=== PATIENT | female | born 1985 | race Two or more races ===

== ENCOUNTER 2017-04-22 18:04 | Outpatient (CLI) | payer OTHER ==
[~2017-04-22 18:04] MED LIST: LEVAQUIN750 MG PO
== END 2017-04-22 18:45 | disposition home or self-care (01) ==
LOC: NST 18:04
DX: Z34.82 Encounter for supervision of other normal pregnancy, second trimester (principal); Z3A.28 28 weeks gestation of pregnancy

== ENCOUNTER 2017-04-24 02:35 | Inpatient (IN) | payer OTHER ==
[~2017-04-24] VITALS: Ht 157.5 cm; Wt 62.6 kg
[2017-04-24] MEDS ORDERED: PRENATAL TABLE1 EAC4 PO (14:35)
== END 2017-04-26 12:35 | disposition home or self-care (01) | DRG 781 ==
LOC: OBS/DEL 02:35 → LDR 07:45 → OB/GYN 16:47
PROC: 4A1HXCZ Monitoring of Products of Conception, Cardiac Rate, External Approach (ICD-10-PCS; principal; 2017-04-24)
PROC: BW40ZZZ Ultrasonography of Abdomen (ICD-10-PCS; 2017-04-24)
PROC: BY4FZZZ Ultrasonography of Third Trimester, Single Fetus (ICD-10-PCS; 2017-04-24)
DX: O26.893 Other specified pregnancy related conditions, third trimester (principal); M54.9 Dorsalgia, unspecified; B95.1 Streptococcus, group B, as the cause of diseases classified elsewhere; Z3A.28 28 weeks gestation of pregnancy

== ENCOUNTER 2017-07-08 09:28 | Inpatient (IN) | payer OTHER ==
[~2017-07-08] VITALS: Ht 157.5 cm; Wt 3.2 kg
[~2017-07-08 09:28] MED LIST changes: +PRENATAL TABLE1 EAC4 PO
== END 2017-07-11 12:44 | DRG 766 ==
LOC: O/R 09:28 → OB/GYN 10:19
PROVIDERS: Obstetrics & Gynecology Maternal & Fetal Medicine
PROC: 0UT50ZZ Resection of Right Fallopian Tube, Open Approach (ICD-10-PCS; 2017-07-08)
PROC: 4A1HXCZ Monitoring of Products of Conception, Cardiac Rate, External Approach (ICD-10-PCS; 2017-07-08)
PROC: 10D00Z1 Extraction of Products of Conception, Low, Open Approach (ICD-10-PCS; principal; 2017-07-08 12:30)
DX: O34.211 Maternal care for low transverse scar from previous cesarean delivery (principal); Z3A.39 39 weeks gestation of pregnancy; Z37.0 Single live birth; Z30.2 Encounter for sterilization; Z64.1 Problems related to multiparity

== ENCOUNTER 2019-06-22 15:14 | Emergency (ER) | payer OTHER ==
[~2019-06-22] VITALS: Ht 157.5 cm; Wt 61.2 kg
[2019-06-22] MEDS ORDERED: BACTRIM DS TAB1 EACH PO (16:50)
== END 2019-06-22 17:18 | disposition home or self-care (01) ==
LOC: ER 15:14
DX: T16.1XXA Foreign body in right ear, initial encounter (principal); H92.01 Otalgia, right ear; W45.8XXA Other foreign body or object entering through skin, initial encounter; Y93.89 Activity, other specified; Y92.89 Other specified places as the place of occurrence of the external cause; Y99.8 Other external cause status

== ENCOUNTER 2023-01-05 15:12 | Emergency (ER) | payer OTHER ==
[~2023-01-05] VITALS: Ht 157.5 cm; Wt 65.8 kg
[~2023-01-05 15:12] MED LIST changes: +BACTRIM DS TAB1 EACH PO
[2023-01-05] MEDS ORDERED: PEPCID AC20 MG PO (20:55)
[2023-01-05] MEDS ORDERED: ZOFRAN8 MG PO (20:55)
== END 2023-01-05 21:01 | disposition home or self-care (01) ==
LOC: ER 15:12
PROVIDERS: General Practice
DX: R10.32 Left lower quadrant pain (principal); Z88.0 Allergy status to penicillin

== ENCOUNTER → 2024-04-30 | Emergency (ER) | payer OTHER ==
[~2024-04-30] VITALS: Ht 157.5 cm; Wt 74.8 kg
[~2024-04-30] MED LIST changes: +ALL DAY ALLERGY10 M3 PO; +MUCINEX DM ER1 EAC1 PO; +PEPCID AC20 MG PO; +PROAIR RESPICL90 MCG IH; +SEPTRA; +SYMBICORT 16010.2 GM IH; +ZITHROMAX500 MG PO; +ZOFRAN8 MG PO
[2024-04-30 17:53] VITALS: BP 160/83; O2SAT 97
== END | disposition left against medical advice (07) ==
LOC: ER 17:38
DX: Z53.21 Procedure and treatment not carried out due to patient leaving prior to being seen by health care provider (principal)